=== PATIENT | female | born 1990 | race Caucasian/White ===

== ENCOUNTER → 2023-10-24 | Emergency (ER) | payer MEDICAID ==
[~2023-10-24] VITALS: Ht 175.3 cm; Wt 100.0 kg
[~2023-10-24] MED LIST: IBUP-2028 MT; KETOROLAC 30MG/ML VIAL IM ONE; LIDO700A15 TP; LIDOCAINE 5% PATCH TOP SCH
[2023-10-24 17:36] VITALS: O2SAT 98
[2023-10-24 21:48] VITALS: BP 128/76; PULSE 58; RESP 18; TEMP 98
== END ==
LOC: ER 17:24
DX: S20.212A Contusion of left front wall of thorax, initial encounter (principal); V49.9XXA Car occupant (driver) (passenger) injured in unspecified traffic accident, initial encounter; Y93.9 Activity, unspecified; Y92.89 Other specified places as the place of occurrence of the external cause; Y99.8 Other external cause status
CPT/HCPCS: 99283; 71101; 96372; J1885